=== PATIENT | female | born 1970 | race Caucasian/White ===

== ENCOUNTER → 2025-05-20 | Outpatient (CLI) | payer BC ==
[~2025-05-20] VITALS: Ht 170.2 cm; Wt 147.0 kg
[~2025-05-20] MED LIST: IOHEXOL-350 100 ML BOTTLE ONE; NITROGLYCERIN SPRAY/4.9GM CAN TL NR
[2025-05-20] MEDS: NITROGLYCERIN SPRAY/4.9GM CAN TL ONE (09:55)
== END | disposition home or self-care (01) ==
LOC: CT 09:21
PROVIDERS: ATTEND Internal Medicine Cardiovascular Disease
DX: Z13.6 Encounter for screening for cardiovascular disorders (principal); I25.10 Atherosclerotic heart disease of native coronary artery without angina pectoris; M47.814 Spondylosis without myelopathy or radiculopathy, thoracic region; R07.9 Chest pain, unspecified
CPT/HCPCS: 75571; Q9967